=== PATIENT | female | born 1975 | race African-American/Black ===

== ENCOUNTER 2021-03-18 12:33 | Emergency (ER) | payer OTHER, SELFPAY ==
[2021-03-18 12:36] VITALS: BP 131/81; PULSE 71; RESP 16; TEMP 36.6; O2SAT 99; BMI 28.1
--- NOTE | 2021-03-18 13:19 | ED.BACK ---
HPI - Back Pain/Injury General Chief Complaint: Back Pain/Injury Stated Complaint: Work Injury Time Seen by Provider: 03/18/21 13:19 Source: patient Mode of arrival: ambulatory Limitations: no limitations History of Present Illness HPI Narrative: 45 y/o female with history of gastric sleeve in the past presents to the ER with lower back pain for the last 2 days after she was lifting heavy bags of office supplies while at work. She felt a pulling at the time of the injury. She has been taking Tylenol with minimal improvement. She has been sleeping okay at night but has pain when she moves from side to side. The pain radiates down both of her legs at times. She has a hard time standing straight up because of the pain and spasm in her back. She denies numbness, tingling, LE weakness or incontinence. MD elicited complaint: back pain and back injury Pertinent past history: prior back pain (several years ago) Onset (ago): day(s) (2) Timing: constant Severity: moderate Similar Symptoms Previously: Yes Quality: spasming Location: right lower back and left lower back Radiation: left upper leg and right upper leg Exacerbating factors: movement and lifting Relieving factors: immobilization and medication Context: while lifting Associated symptoms: denies other symptoms Treatments prior to arrival: acetaminophen Work related injury: Yes Related Data Previous Rx's Medication Instructions Recorded cyclobenzaprine 10 mg PO TID PRN #12 tab 03/18/21 lidocaine [Lidoderm] 1 patch TOPICAL DAILY #15 ea 03/18/21 oxycodone 5 mg PO BID PRN #5 tab 03/18/21 Allergies Allergy/AdvReac Type Severity Reaction Status Date / Time No Known Allergies Allergy Unverified 05/22/20 19:52 [No Known Allergies*] Review of Systems Review of Systems: Constitutional: No Fever, No Chills Cardiovascular: No Chest Pain, No SOB Gastrointestinal: No Nausea, No Vomiting, No abdominal Pain Genitourinary: No Dysuria, No Urinary Frequency, No Hematuria Musculoskeletal: No joint pain, + Myalgias Skin: No Skin Lesions, No rash Neuro: No Weakness, No Numbness Heme/Lymph: No Bruising, No Lymphadenopathy PMFSH Past Medical History Attestation statement: The following information was validated with the patient. Medical History delivery delivered HTN (hypertension) Surgical History (Updated 03/18/21 @ 12:38 by Clifton Patel) History of sleeve gastrectomy Social History Social History Advance Directives: No Advance Directives Information Provided: No Patient : No Physical Exam Vital Signs: Vital Signs: Last Vital Signs Temp 97.8 F 03/18/21 12:36 Pulse 71 03/18/21 12:36 Resp 16 03/18/21 12:36 BP 131/81 03/18/21 12:36 Pulse Ox 99 03/18/21 12:36 Body Mass Index 28.1 Appearance: Alert. Oriented X3. No acute distress. HEENT: normal inspection CVS: Normal heart rate and rhythm. Pulses normal. Respiratory: No respiratory distress. Skin: Skin warm and dry. Normal skin color. Normal skin turgor. No rashes. Back: normal inspection. lower lumbar area with bilateral soft tissue tenderness and spasm. no spinal process tenderness. Extremities: atraumatic, no LE edema. no calf tenderness. Neuro: Oriented X 3. No motor deficit. No sensory deficit. Ambulates with a steady gait. Normal DTRs Course Course Course Narrative: 45 y/o female presenting with low back pain after she was lifting heavy bags at work. No red flag symptoms of LBP. Exam and clinical presentation are consistent with lumbar strain and spasm. Will treat with muscle relaxer, topical lidoderm and PRN oxycodone for severe pain for the next 2 days. Unable to take NSAID due to gastric sleeve status. She was encouraged to f/u with PCP for further management and workup if pain persists. We discussed red flag symptoms that should prompt urgent re-evaluation in the ER. Stable for discharge home with supportive care. Critical Care Time Critical Care Time Critical Care Time: No Discharge Plan Discharge Clinical Impression: Strain of lumbar region Qualifiers: Encounter type: initial encounter Qualified Code(s): S39.012A - Strain of muscle, fascia and tendon of lower back, initial encounter Patient Disposition: Home, Self-Care Instructions: Low Back Strain (ED), Lower Back Exercises (ED) Additional Instructions: Your pain is most likely due to a strain of the muscles in your lower back. No bending, lifting or twisting. Use ice several times per day for 20 minutes at a time for the next 48 hours and then change to heat. Take medications as prescribed to help with pain and discomfort. Do not drive or drink alcohol after taking these medications. Follow up with your Primary Care Doctor this week. If your pain worsens, if you develop new numbness, tingling, weakness, loss of function or incontinence call 911 or come back to the ER right away for evaluation. Prescriptions: New cyclobenzaprine 10 mg tablet 10 mg PO TID PRN (Reason: muscle spasm) Qty: 12 RF: 0 lidocaine [Lidoderm] 5 % adhesive patch,medicated 1 patch topical DAILY Qty: 15 RF: 0 oxycodone 5 mg tablet 5 mg PO BID PRN (Reason: pain) Qty: 5 RF: 0 Referrals: [facility] [Provider Group] - 2 days (LBP after lifting at work) Stand Alone Forms: Work/School Release Interventions: ED Discharge Assessment Last Done: 03/18/21 13:42 Discharge Date/Time: 03/18/21 13:44
== END 2021-03-18 13:44 | disposition home or self-care (01) ==
LOC: HO.ED 13:38
PROVIDERS: Emergency Provider Emergency Medicine; PCP Internal Medicine
DX: S39.012A Strain of muscle, fascia and tendon of lower back, initial encounter (principal); X50.0XXA Overexertion from strenuous movement or load, initial encounter; X50.3XXA Overexertion from repetitive movements, initial encounter; X50.9XXA Other and unspecified overexertion or strenuous movements or postures, initial encounter; Y93.9 Activity, unspecified; Y92.9 Unspecified place or not applicable; Y99.9 Unspecified external cause status; Z79.899 Other long term (current) drug therapy
CPT/HCPCS: 99283